=== PATIENT | male | born 2000 | race Caucasian/White ===

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

== ENCOUNTER 2020-09-23 17:01 | Emergency (ER) | payer OTHER | END 2020-09-23 17:55 | disposition home or self-care (01) | LOC: ER1 17:01 | DX: S70.11XA Contusion of right thigh, initial encounter (principal); S60.221A Contusion of right hand, initial encounter; F84.0 Autistic disorder; V49.50XA Passenger injured in collision with unspecified motor vehicles in traffic accident, initial encounter; Y92.410 Unspecified street and highway as the place of occurrence of the external cause | CPT/HCPCS: 99284 ==